=== PATIENT | female | born 1990 | race Caucasian/White ===

== ENCOUNTER 2017-07-25 22:30 | Emergency (ER) | payer OTHER ==
[~2017-07-25] VITALS: Ht 167.6 cm; Wt 68.0 kg
[2017-07-25 22:35] VITALS: BP 142/94
[2017-07-25] MEDS ORDERED: IBUP-2213 PO (22:41)
--- NOTE | 2017-07-25 22:45 | NUR ---
ASSUMED CARE OF PT AT THIS TIME. C/O SUB-STERNAL CP RADIATING TO THE BACK X 1 DAY W/ N/V X 1 WEEK. PT STATES CP INCREASES W/ INSPIRATION. SKIN IS PINK/WARM/DRY; AAOX4 WITH EVEN AND STEADY GAIT; LUNGS CLEAR BL; HR EVEN AND REGULAR; PT DENIES ANY FEVER, SOB, OR COUGH AT THIS TIME; PATIENT STATES PAIN OF 8/10 AT THIS TIME; VSS; ER MD MADE AWARE OF PT STATUS.
--- NOTE | 2017-07-25 22:46 | NUR ---
PATIENT AMBULATED TO ER CHAIR A
[2017-07-25] MEDS ORDERED: KETOROLAC 30 MG/ML VIAL IM ONE (22:55)
--- NOTE | 2017-07-25 23:00 | NUR ---
PATIENT TAKEN TO XRAY
[2017-07-25 23:40] VITALS: BP 134/88
== END 2017-07-25 23:40 | disposition home or self-care (01) ==
LOC: MED 22:30
DX: R07.89 Other chest pain (principal); Z79.899 Other long term (current) drug therapy; Z72.0 Tobacco use
CPT/HCPCS: 71045; 81025; 96372; 99284; J1885; 93005